=== PATIENT | male | born 1945 | race Caucasian/White ===

== ENCOUNTER 2016-05-22 07:04 | Day surgery (SDC) | payer MEDICARE, OTHER ==
[2016-05-22] MEDS ORDERED: LACTATED RINGERS 1,000 ML IV ONE (07:45)
[2016-05-22] MEDS ORDERED: fentaNYL 250 MCG/5 ML VIAL IVP ONE (09:00)
[2016-05-22] MEDS ORDERED: SIMETHICONE 40 MG/0.6 ML 30 ML BOTTLE PO ONE ×2 (09:00)
[2016-05-22] MEDS ORDERED: MIDAZOLAM 2 MG/2 ML VIAL IVP ONE (09:00)
== END 2016-05-22 07:05 | disposition home or self-care (01) ==
PROC: 0DBL8ZX Excision of Transverse Colon, Via Natural or Artificial Opening Endoscopic, Diagnostic (ICD-10-PCS; principal; 2016-05-22 08:15)
DX: Z86.010 Personal history of colon polyps (principal); Z90.49 Acquired absence of other specified parts of digestive tract; K57.30 Diverticulosis of large intestine without perforation or abscess without bleeding; K64.8 Other hemorrhoids; I10 Essential (primary) hypertension; Z87.891 Personal history of nicotine dependence
CPT/HCPCS: 45380; A9270; J3010; J7120

== ENCOUNTER 2020-11-13 14:21 | Emergency (ER) | payer MEDICARE ==
[2020-11-13] MEDS ORDERED: HYDROmorphone 1 MG/ML CARPUJECT IM STA (14:41)
--- NOTE | 2020-11-13 14:44 | ED Physician Documentation ---
History of Present Illness - Stated complaint Stated Complaint: MALE - Chief complaint Chief Complaint: General - Additonal information Additional information: 75-year-old male presents the emergency department for acute urinary obstructi on. He has a longstanding history of bladder and prostate dysfunction. He had a urological procedure with Dr. Gonzales at [facility] about 10 days ago. His Delarosa catheter was removed on the fifth. He states that since yesterday evening he has began to pass more blood clots and is now obstructed and unable to urinate. He does have a fair amount of blood exiting the urinary meatus. No fevers no vomiting. On initial presentation he appears exquisitely uncomfortable. Preliminary bladder scan shows 375 mils. Review of Systems Constitutional: denies: Fever, Chills Eyes: reports: Reviewed and negative Nose: reports: Reviewed and negative Throat: reports: Reviewed and negative Cardiac: reports: Reviewed and negative Respiratory: reports: Reviewed and negative GI: reports: Abdominal Pain. denies: Nausea, Vomiting : reports: Unable to Void, Hematuria Musculoskeletal: reports: Reviewed and negative Neurologic: reports: Reviewed and negative PD PAST MEDICAL HISTORY - Past Medical History Cardiovascular: Hypertension GI: Colon polyps, Diverticulitis - Past Surgical History General: Appendectomy, Other - Present Medications Home Medications: Ambulatory Orders Medication Instructions Recorded Confirmed Atenolol 50 mg PO BID 05/22/16 05/22/16 Diphenoxylate HCl/Atropine 2.5 mg PO PRN PRN 05/22/16 05/22/16 [Diphenoxylate-Atrop 2.5-0.025] Fluticasone Propionate [Flovent 1 mcg MAIRA DAILY 05/22/16 05/22/16 Diskus] Gabapentin 300 mg PO Q6HR 05/22/16 05/22/16 Loratadine [Claritin] 10 mg PO DAILY 05/22/16 05/22/16 Cefpodoxime Proxetil [Vantin] 100 mg PO Q12H #20 tablet 11/13/20 - Allergies Allergies/Adverse Reactions: Allergies Allergy/AdvReac Type Severity Reaction Status Date / Time No Known Drug Allergies Allergy Verified 05/22/16 07:34 PD ED PE EXPANDED - General General: Alert, In distress - Cardiac Cardiac: Regular Rate, Radial strong equal, Pedal strong equal, Cap refill < 2 sec - Respiratory Respiratory: Clear to ausultation araceli. No: Distress, Labored - Abdomen Abdomen: Normal Bowel sounds, Tender to palpation, Suprapubic (significant TTP suprapubic region with palpable bladder ) - Derm Derm: Normal color, Warm and dry. No: Rash - Extremities Extremities: Normal. No: Deformity, Tenderness Results - Vitals Vitals: Vital Signs - 24 hr 11/13/20 11/13/20 14:25 15:03 Temperature 36.9 C Heart Rate 70 84 Respiratory 16 Rate Blood Pressure 185/87 H 107/50 L O2 Saturation 99 99 Oxygen O2 Source Room air - Labs Labs: Laboratory Tests 11/13/20 11/13/20 11/13/20 14:29 14:29 15:23 WBC 13.4 H RBC 4.65 L Hgb 13.0 L Hct 40.5 L MCV 87.1 MCH 28.0 MCHC 32.1 RDW 14.0 Plt Count 372 MPV 7.8 Neut # (Auto) 11.0 H Lymph # (Auto) 1.2 L [place] # (Auto) 1.0 Eos # (Auto) 0.1 Baso # (Auto) 0.1 Absolute Nucleated RBC 0.00 Nucleated RBC % 0.0 Sodium 139 Potassium 4.2 Chloride 106 Carbon Dioxide 23 Anion Gap 10.0 BUN 34 H Creatinine 1.3 H Estimated GFR (MDRD) 54 L Glucose 117 H Calcium 9.0 Total Bilirubin 0.7 AST 12 ALT 10 Alkaline Phosphatase 34 L Total Protein 6.7 Albumin 4.1 Globulin 2.6 Albumin/Globulin Ratio 1.6 Lipase 24 Urine Color BROWN Urine Clarity CLOUDY Urine pH 6.5 Ur Specific [place] 1.025 Urine Protein >=300 H Urine Glucose (UA) NEGATIVE Urine Ketones TRACE Urine Occult Blood LARGE H Urine Nitrite POSITIVE H Urine Bilirubin NEGATIVE Urine Urobilinogen 1 (NORMAL) Ur Leukocyte Esterase MODERATE H Urine RBC TNTC H Urine WBC >25 H Ur Squamous Epith Cells NONE SEEN Amorphous Sediment Few Urine Bacteria Few Ur Microscopic Review INDICATED Urine Culture Comments INDICATED PD MEDICAL DECISION MAKING - ED course Complexity details: reviewed results, d/w patient, d/w family ED course: 75-year-old male presents the emergency department with acute urinary obstruction. This is in the setting of a history of prostate as well as bladder issues. He was decatheterized on 07 November but has been passing small amounts of blood. On presentation he had more than 350 mils of urine in his bladder. A coud catheter was advanced with resultant drainage of bloody urine. The urine however is suggestive of infection. This gentleman was given a gram of ceftriaxone here in the emergency department. Screening labs do show moderate leukocytosis as well as likely early dehydration and early kidney injury. He reports that due to the obstruction he is drank very little. He was given a liter of crystalloid and advised to improve his hydration at home. At this time patient declines the opportunity for admission. He will be discharged home with a prescription for Cefpodoxime (He reports an allergy to sulfa as well as fluoroquinolones). He is advised to have very close follow-up with urologist Dr. Gonzales. Emergent return precautions discussed Departure - Departure Disposition: Home, Self Care Clinical Impression: Urinary obstruction, Elevated serum creatinine Urinary tract infection Qualifiers: Urinary tract infection type: catheter-associated UTI Indwelling urinary catheter type: unspecified Encounter type: initial encounter Qualified Code(s): T83.511A - Infection and inflammatory reaction due to indwelling urethral catheter, initial encounter; N39.0 - Urinary tract infection, site not specified Condition: Stable Record reviewed to determine appropriate education?: Yes Prescriptions: Cefpodoxime Proxetil [Vantin] 100 mg PO Q12H #20 tablet Comments: Rob you are seen today in the emergency department for urinary obstruction. We were able to place a Delarosa catheter. You will need to keep this in until you see your urologist in follow-up. You do have a urinary tract infection please fill the prescription for the Cefpodoxime and take twice daily for 10 days. You do look like you are fairly dehydrated and we did give you some IV fluids. Please try and stay well-hydrated at home. Return to the emergency department if you develop any fevers, your catheter becomes occluded and does not drain properly, if you develop abdominal pain or have any other emergent worrisome concerns.
[2020-11-13 15:38] LABS: GLUCOSE, URINE (UA) NEGATIVE (NEGATIVE); KETONES,URINE (UA) TRACE mg/dL (NEGATIVE); LEUKOCYTE ESTERASE, URINE MODERATE (NEGATIVE); NITRITE,URINE POSITIVE (NEGATIVE); OCCULT BLOOD,URINE LARGE (NEGATIVE); PH,URINE 6.5 PH (5.0-7.5); PROTEIN,URINE >=300 mg/dL (NEGATIVE); UROBILINOGEN,URINE 1 (NORMAL) E.U./dL (NORMAL)
[2020-11-13 16:01] LABS: BILIRUBIN,URINE NEGATIVE (NEGATIVE); CLARITY,URINE CLOUDY (CLEAR); ICTOTEST,URINE NEGATIVE
[2020-11-13 16:02] LABS: AMORPHOUS SEDIMENT,UR Few /LPF; BACTERIA,URINE Few /HPF (None Seen); RBC,URINE TNTC /HPF (0-5); SQUAMOUS EPITHELIAL CELL,UR NONE SEEN (<= Few); WBC,URINE >25 /HPF (0-3)
[2020-11-13] MEDS ORDERED: cefTRIAXone 1 GM VIAL IM STA (16:21)
[2020-11-13] MEDS ORDERED: LIDOCAINE 1% 2 ML VIAL MC ONE (16:21)
[2020-11-13 16:34] LABS: BASOPHILS # (AUTO) 0.1 10^3/uL (0.0-0.1); BASOPHILS % (AUTO) 0.4 %; EOSINOPHILS # (AUTO) 0.1 10^3/uL (0.0-0.7); HCT - HEMATOCRIT 40.5 % (42.0-52.0); LYMPHOCYTES # (AUTO) 1.2 10^3/uL (1.5-3.5); LYMPHOCYTES % (AUTO) 8.7 %; MEAN CORPUSCULAR HGB CONC 32.1 g/dL (32.0-36.0); MEAN CORPUSCULAR VOLUME 87.1 fL (80.0-94.0); MEAN PLATELET VOLUME 7.8 fL (7.4-11.4); MONOCYTES % (AUTO) 7.2 %; NEUTROPHILS % (AUTO) 82.1 %; PLT - PLATELET COUNT 372 10^3/uL (130-450); RED BLOOD COUNT 4.65 10^6/uL (4.70-6.10); WHITE BLOOD COUNT 13.4 x10^3/uL (4.8-10.8)
[2020-11-13 16:47] LABS: ALBUMIN 4.1 g/dL (3.2-5.5); ALBUMIN/GLOBULIN RATIO 1.6 (1.0-2.2); BILIRUBIN,TOTAL 0.7 mg/dL (0.2-1.0); CREATININE 1.3 mg/dL (0.6-1.2); POTASSIUM 4.2 mmol/L (3.5-5.0); TOTAL PROTEIN 6.7 g/dL (6.7-8.2)
[2020-11-13] MEDS ORDERED: SODIUM CHLORIDE 0.9% 1,000 ML IV STA (16:56)
[2020-11-13 18:47] VITALS: BP 133/59
== END 2020-11-13 18:46 | disposition home or self-care (01) ==
LOC: ED 14:21
DX: N13.9 Obstructive and reflux uropathy, unspecified (principal); T83.511A Infection and inflammatory reaction due to indwelling urethral catheter, initial encounter; R79.89 Other specified abnormal findings of blood chemistry
CPT/HCPCS: 36415; 51702; 80053; 81001; 83690; 85025; 87086; 96360; 96372; 99283; 99284; J1170; 81003

== ENCOUNTER 2022-04-17 08:39 | Outpatient (CLI) | payer MEDICARE ==
[2022-04-17 14:50] LABS: BASOPHILS # (AUTO) 0.1 10^3/uL (0.0-0.1); BASOPHILS % (AUTO) 0.5 %; EOSINOPHILS # (AUTO) 0.2 10^3/uL (0.0-0.7); EOSINOPHILS % (AUTO) 2.1 %; HCT - HEMATOCRIT 49.1 % (42.0-52.0); HGB - HEMOGLOBIN 15.7 g/dL (14.0-18.0); LYMPHOCYTES # (AUTO) 2.7 10^3/uL (1.5-3.5); LYMPHOCYTES % (AUTO) 28.7 %; MEAN CORPUSCULAR HEMOGLOBIN 28.1 pg (27.0-31.0); MEAN CORPUSCULAR VOLUME 87.8 fL (80.0-94.0); MEAN PLATELET VOLUME 8.7 fL (7.4-11.4); MONOCYTES # (AUTO) 0.9 10^3/uL (0.0-1.0); MONOCYTES % (AUTO) 9.7 %; NEUTROPHILS # (AUTO) 5.5 10^3/uL (1.5-6.6); NEUTROPHILS % (AUTO) 58.5 %; PLT - PLATELET COUNT 349 10^3/uL (130-450); RED BLOOD COUNT 5.59 10^6/uL (4.70-6.10); RED CELL DISTRIBUTION WIDTH 12.8 % (12.0-15.0); WHITE BLOOD COUNT 9.4 x10^3/uL (4.8-10.8)
[2022-04-17 15:17] LABS: ALBUMIN 4.1 g/dL (3.2-5.5); ALBUMIN/GLOBULIN RATIO 1.5 (1.0-2.2); ALKALINE PHOSPHATASE 37 IU/L (42-121); ALT ALANINE AMINOTRANSFERASE 16 IU/L (10-60); AST ASPARTATE AMINOTRANSFERASE 17 IU/L (10-42); BUN - BLOOD UREA NITROGEN 20 mg/dL (6-20); CALCIUM 9.4 mg/dL (8.5-10.3); CARBON DIOXIDE - CO2 26 mmol/L (21-32); CHLORIDE 105 mmol/L (101-111); CHOL/HDL RATIO 4.2 (<5.0); CHOLESTEROL 184 mg/dL; CREATININE 1.1 mg/dL (0.6-1.2); GFR - MDRD 65 (>89); GLUCOSE 108 mg/dL (70-100); HDL CHOLESTEROL 44 mg/dL; LDL CHOLESTEROL,CALCULATED 114 mg/dL; LDL/HDL RATIO 2.6 (<3.6); POTASSIUM 3.9 mmol/L (3.5-5.0); SODIUM 138 mmol/L (135-145); TOTAL PROTEIN 6.9 g/dL (6.7-8.2); TRIGLYCERIDES 132 mg/dL; VLDL CHOLESTEROL 26 mg/dL
== END 2022-04-17 08:40 | disposition home or self-care (01) ==
LOC: LAB.S 08:39
PROVIDERS: ATTEND Hospitalist
DX: I10 Essential (primary) hypertension (principal); K91.2 Postsurgical malabsorption, not elsewhere classified; E78.49 Other hyperlipidemia; N40.1 Benign prostatic hyperplasia with lower urinary tract symptoms
CPT/HCPCS: 36415; 80053; 80061; 85025; G0103; 83721; 84153

== ENCOUNTER 2022-12-12 16:47 | Emergency (ER) | payer MEDICARE ==
--- NOTE | 2022-12-12 18:37 | ED Physician Documentation ---
PD HPI BACK PAIN - Stated complaint Stated Complaint: BACK PX - Chief complaint Chief Complaint: Back Pain - History obtained from History obtained from: Patient - History of Present Illness Pain level max: 7 Pain level now: 7 Location: Mid, Right, Left Quality: Pain, Spasm Associated symptoms: No: Fever, Weakness, Numbness, Incontinent of urine, Unable to urinate, Hematuria, Incontinent of stool Improves with: Rest Worsened by: Movement Contributing factors: Cancer (prostate). No: Trauma, Anticoagulated, IVDA - Additional information Additional information: Patient is a 77-year-old male who presents to the emergency department complaint of mid back pain for the past 3 weeks. Feels like it is "in the muscle". Saw his doctor a week ago and was placed on gabapentin and baclofen. He states he is still having back pain. He is also having epigastric abdominal pain for the past 3 weeks. Better with eating, worse with not eating. No vomiting. Has a remote history of prostate cancer. No fevers. No chills. No trauma. No falls. No head injury. No neck pain. No numbness or tingling. Review of Systems Constitutional: denies: Fever, Chills Nose: denies: Rhinorrhea / runny nose, Congestion GI: denies: Nausea, Vomiting, Diarrhea Skin: denies: Rash Musculoskeletal: denies: Neck pain Neurologic: denies: Focal weakness, Numbness, Headache PD PAST MEDICAL HISTORY - Past Medical History Cardiovascular: Hypertension Respiratory: None Neuro: None Endocrine/Autoimmune: None GI: Colon polyps, Diverticulitis : Benign prostate hypertrophy HEENT: None Psych: None Musculoskeletal: None Derm: None - Past Surgical History General: Appendectomy, Other - Present Medications Home Medications: Ambulatory Orders Medication Instructions Recorded Confirmed Atenolol 50 mg PO BID 05/22/16 12/12/22 Baclofen 5 mg PO Q8H PRN #14 tablet 12/12/22 Baclofen [Lioresal] 10 mg PO BID PRN 12/12/22 12/12/22 Diclofenac Sodium 1% Gel [Voltaren 2 gm TOP QID 12/12/22 12/12/22 Gel] Diphenoxylate/Atropine [Lomotil] 1 tab ORAL BID PRN 12/12/22 12/12/22 Gabapentin [Neurontin] 100 mg PO TID 12/12/22 12/12/22 HYDROcod/ACETAM 5/325 [Tuttle 5/325] 1 - 2 ea PO Q6H PRN #14 tablet 12/12/22 Rosuvastatin Calcium [Crestor] 20 mg PO HS 12/12/22 12/12/22 - Allergies Allergies/Adverse Reactions: Allergies Allergy/AdvReac Type Severity Reaction Status Date / Time amoxicillin [From Augmentin] AdvReac Hives Verified 12/12/22 17:15 clavulanic acid AdvReac Hives Verified 12/12/22 17:15 [From Augmentin] erythromycin base AdvReac Hives Verified 12/12/22 17:15 meloxicam AdvReac Hallucinati Verified 12/12/22 17:15 ons Sulfa (Sulfonamide AdvReac Hives Verified 12/12/22 17:15 Antibiotics) Tetracyclines AdvReac Hives Verified 12/12/22 17:15 - Social History Does the pt smoke?: No Smoking Status: Never smoker Does the pt drink ETOH?: No Does the pt have substance abuse?: No - Immunizations Immunizations are current?: Yes - POLST Patient has POLST: No PD ED PE NORMAL - Vitals Vital signs reviewed: Yes - General General: Alert and oriented X 3, No acute distress - HEENT HEENT: PERRL, Moist mucous membranes - Neck Neck: Supple, no meningeal sign - Cardiac Cardiac: RRR, Strong equal pulses - Respiratory Respiratory: No respiratory distress, Clear bilaterally - Abdomen Abdomen: Soft, Non tender, Non distended - Back Back: No spinal TTP (No midline tenderness to palpation or percussion. No step- off or deformity. Mild paraspinal tenderness approximately T8-T12. Bilateral.) - Derm Derm: Warm and dry - Extremities Extremities: No edema, No calf tenderness / cord - Neuro Neuro: Alert and oriented X 3 - Psych Psych: Normal mood, Normal affect Results - Vitals Vitals: Vital Signs - 24 hr 12/12/22 12/12/22 17:08 22:25 Temperature 36.3 C L Heart Rate 51 L 70 Respiratory 18 16 Rate Blood Pressure 148/86 H 146/75 H O2 Saturation 99 98 Oxygen O2 Source Room air - Labs Labs: Laboratory Tests 12/12/22 12/12/22 12/12/22 18:45 18:45 21:34 WBC 12.1 H RBC 5.01 Hgb 14.3 Hct 44.7 MCV 89.2 MCH 28.5 MCHC 32.0 RDW 13.0 Plt Count 391 MPV 8.1 Neut # (Auto) 8.8 H Lymph # (Auto) 2.1 [place] # (Auto) 0.9 Eos # (Auto) 0.2 Baso # (Auto) 0.0 Absolute Nucleated RBC 0.00 Nucleated RBC % 0.0 Sodium 139 Potassium 4.3 Chloride 107 Carbon Dioxide 24 Anion Gap 8.0 BUN 26 H Creatinine 1.0 Estimated GFR (MDRD) 72 L Glucose 105 H Calcium 9.5 Total Bilirubin 0.5 AST 11 ALT 9 L Alkaline Phosphatase 35 L Total Protein 6.8 Albumin 4.1 Globulin 2.7 Albumin/Globulin Ratio 1.5 Lipase 18 Urine Color YELLOW Urine Clarity CLEAR Urine pH 5.5 Ur Specific [place] 1.010 Urine Protein NEGATIVE Urine Glucose (UA) NEGATIVE Urine Ketones 15 H Urine Occult Blood TRACE-INTA Urine Nitrite NEGATIVE Urine Bilirubin NEGATIVE Urine Urobilinogen 0.2 (NORMAL) Ur Leukocyte Esterase NEGATIVE Ur Microscopic Review NOT INDICATED Urine Culture Comments NOT INDICATED - Rads (name of study) CT abdomen pelvis Relevant Findings:: Final report received, See rad report PD Medical Decision Making - ED course Complexity details: reviewed results, re-evaluated patient, considered differential (No cauda equina, no spinal epidural abscess, no fracture, no aortic dissection or evidence of aneursym rupture), d/w patient Reviewed Lab Results: Mild leukocytosis, otherwise no significant lab abnormalities ED course: 77-year-old male with ongoing back pain for several weeks, feels better with baclofen, he is on 10 mg twice a day, we will change this down to 5 mg every 8 hours. He also appears to have a gallstone on CT scan. He is not having any abdominal pain now, but this could be causing the intermittent epigastric/right upper quadrant abdominal pain. Recommend he follow-up with his PCP for further care of this. He had thoracic spine x-rays last week with no acute abnormalities. No acute spinal abnormalities on CT of the abdomen pelvis today. No numbness or tingling. No evidence of cauda equina, epidural abscess. Patient is well-appearing, nontoxic. Afebrile. Patient counseled regarding signs and symptoms for which I believe and urgent re-evaluation would be necessary. Patient with good understanding of and agreement to plan and is comfortable going home at this time This document was made in part using voice recognition software. While efforts are made to proofread this document, sound alike and grammatical errors may occur. Departure - Departure Disposition: 01 Home, Self Care Clinical Impression: Back pain Qualifiers: Back pain location: thoracic back pain Chronicity: acute Back pain laterality: bilateral Qualified Code(s): M54.6 - Pain in thoracic spine Gallstone Qualifiers: Cholecystitis presence: without cholecystitis Biliary obstruction: without biliary obstruction Qualified Code(s): K80.20 - Calculus of gallbladder without cholecystitis without obstruction Condition: Good Instructions: ED Abdominal Pain Gallstone Poss, ED Neck Back Pain General Follow-Up: FRACISCO CUEVA [Primary Care Provider] - Within 3 Days Prescriptions: Baclofen 5 mg PO Q8H PRN #14 tablet PRN Reason: back pain HYDROcod/ACETAM 5/325 [Tuttle 5/325] 1 - 2 ea PO Q6H PRN #14 tablet PRN Reason: Pain Comments: Your prescription was sent to [facility] in [place]. Please follow with your doctor for further care. Your CT does not show any acute findings in your back, that does show that you have a gallstone and this may be causing the pain that you are getting on the right side of your abdomen. Please follow-up with your doctor for further care of this. Please return if you worsen. I am prescribing a short course of narcotic pain medication for you. These are potentially dangerous and addictive medications that should be used carefully. These medications may constipate you. Take an xoak-ipi-tyiuita stool softener (docusate) twice daily with plenty of water while taking these medications. If you go 24 hours without a bowel movement, take [id number] miralax, per package instructions. Do not drink or drive while taking these medications. If you received narcotic or sedating medications while in the emergency department, do not drive for 24 hours. Store this medication in a safe, secure place and out of reach of children. It is a violation of federal law to give or sell this medication to another person or to use in a manner other than prescribed. The ED will not refill narcotic prescriptions, including prescriptions lost or stolen. To dispose of unwanted medications: 1. [facility] at [address] in [place] has a medication drop box. They accept prescription medications (in pill form) Sunday through Sunday 9:00 a.m. to 5:00 p.m. 2. [facility] [employer] [facility] accepts prescription medications (in pill form only) for disposal year round. Call for more information. 3. Contact the [facility] for the next [facility] sponsored prescription drug collection event. , [phone], or [phone]; PROCEDURE: ABDOMEN/PELVIS W INDICATIONS: upper abd pain/back pain x 3 wks, h/o prostate ca CONTRAST: 100mL Omni 300 TECHNIQUE: After the administration of IV contrast, 5 mm thick sections acquired from the diaphragms to the symphysis. 5 mm thick coronal and sagittal reformats were acquired. For radiation dose reduction, the following was used: automated exposure control, adjustment of mA and/or kV according to patient size. COMPARISON: None FINDINGS: Image quality: Excellent. Lung bases and heart: Bibasilar dependent atelectasis/scarring is seen posteriorly. Heart size is enlarged, no pericardial effusion.. Liver: No solid mass. Gallbladder and biliary tree: A calcified stone is noted in dependent portion of gallbladder lumen. No gallbladder wall thickening or pericholecystic fluid. There is no intra or extrahepatic biliary ductal dilatation. Spleen: No splenomegaly. Pancreas: No pancreatic ductal dilation. Adrenals: No adrenal nodule. Kidneys and ureters: No hydronephrosis. Left cortical and peripelvic renal cysts are seen measures up to 2.1 x 1.8 cm in size in left peripelvic region. No solid mass. Bowel and peritoneum: Postsurgical changes are noted in the ascending colon with intact surgical anastomosis. No evidence of bowel obstruction. No abnormal bowel wall thickening or mesenteric fat stranding. Descending colon and sigmoid colon diverticulosis is seen without colonic wall thickening or pericolonic fat stranding. No abscess collection. No free fluid of free air. Appendix is not visualized. Lymph nodes: No central or retroperitoneal adenopathy. Vessels: No infrarenal aortic aneurysm. Moderate atherosclerotic calcifications are noted in abdominal aorta and bilateral iliac arteries. PELVIS Reproductive organs: Brachytherapy seeds are noted within prostate gland. Bladder: No abnormal wall thickening, accounting for underdistension. Pelvic lymph nodes: No pelvic adenopathy by size criteria. Bones: No aggressive osseous abnormality. Osteoarthritic changes are noted throughout the bony pelvis. Degenerative disc disease are noted throughout lower thoracic and lumbar spine. No acute vertebral body compression fracture. Other: No significant ventral hernia. Small bilateral inguinal hernias are seen containing fat only. IMPRESSION: 1. No acute inflammatory process is seen in abdomen or pelvis. Colonic diverticulosis without CT evidence of acute diverticulitis. Post surgical changes in right lower quadrant abdomen. No free fluid of free air. 2. Left renal cysts as above. No hydronephrosis or nephrolithiasis. Normal appearing partially distended urinary bladder. Brachytherapy seeds are noted within prostate gland. 3. Cholelithiasis without CT evidence of acute cholecystitis. No biliary ductal dilatation. Discharge Date/Time: 12/12/22 22:25
[2022-12-12 18:57] LABS: BASOPHILS % (AUTO) 0.3 %; EOSINOPHILS # (AUTO) 0.2 10^3/uL (0.0-0.7); EOSINOPHILS % (AUTO) 1.6 %; HCT - HEMATOCRIT 44.7 % (42.0-52.0); HGB - HEMOGLOBIN 14.3 g/dL (14.0-18.0); LYMPHOCYTES # (AUTO) 2.1 10^3/uL (1.5-3.5); LYMPHOCYTES % (AUTO) 17.5 %; MEAN CORPUSCULAR HEMOGLOBIN 28.5 pg (27.0-31.0); MEAN CORPUSCULAR VOLUME 89.2 fL (80.0-94.0); MEAN PLATELET VOLUME 8.1 fL (7.4-11.4); MONOCYTES # (AUTO) 0.9 10^3/uL (0.0-1.0); MONOCYTES % (AUTO) 7.7 %; NEUTROPHILS # (AUTO) 8.8 10^3/uL (1.5-6.6); NEUTROPHILS % (AUTO) 72.5 %; PLT - PLATELET COUNT 391 10^3/uL (130-450); RED BLOOD COUNT 5.01 10^6/uL (4.70-6.10); WHITE BLOOD COUNT 12.1 x10^3/uL (4.8-10.8)
[2022-12-12 19:12] LABS: ALBUMIN 4.1 g/dL (3.2-5.5); ALBUMIN/GLOBULIN RATIO 1.5 (1.0-2.2); BILIRUBIN,TOTAL 0.5 mg/dL (0.2-1.0); CALCIUM 9.5 mg/dL (8.5-10.3); POTASSIUM 4.3 mmol/L (3.5-4.5); TOTAL PROTEIN 6.8 g/dL (6.4-8.9)
--- NOTE | 2022-12-12 20:38 | CT Report ---
PROCEDURE: ABDOMEN/PELVIS W INDICATIONS: upper abd pain/back pain x 3 wks, h/o prostate ca CONTRAST: 100mL Omni 300 TECHNIQUE: After the administration of IV contrast, 5 mm thick sections acquired from the diaphragms to the symp hysis. 5 mm thick coronal and sagittal reformats were acquired. For radiation dose reduction, the f ollowing was used: automated exposure control, adjustment of mA and/or kV according to patient size. COMPARISON: None FINDINGS: Image quality: Excellent. Lung bases and heart: Bibasilar dependent atelectasis/scarring is seen posteriorly. Heart size is enl arged, no pericardial effusion.. Liver: No solid mass. Gallbladder and biliary tree: A calcified stone is noted in dependent portion of gallbladder lumen. N o gallbladder wall thickening or pericholecystic fluid. There is no intra or extrahepatic biliary ede mae dilatation. Spleen: No splenomegaly. Pancreas: No pancreatic ductal dilation. Adrenals: No adrenal nodule. Kidneys and ureters: No hydronephrosis. Left cortical and peripelvic renal cysts are seen measures up to 2.1 x 1.8 cm in size in left peripelvic region. No solid mass. Bowel and peritoneum: Postsurgical changes are noted in the ascending colon with intact surgical anas tomosis. No evidence of bowel obstruction. No abnormal bowel wall thickening or mesenteric fat strand ing. Descending colon and sigmoid colon diverticulosis is seen without colonic wall thickening or per icolonic fat stranding. No abscess collection. No free fluid of free air. Appendix is not visualized. Lymph nodes: No central or retroperitoneal adenopathy. Vessels: No infrarenal aortic aneurysm. Moderate atherosclerotic calcifications are noted in abdomina l aorta and bilateral iliac arteries. PELVIS Reproductive organs: Brachytherapy seeds are noted within prostate gland. Bladder: No abnormal wall thickening, accounting for underdistension. Pelvic lymph nodes: No pelvic adenopathy by size criteria. Bones: No aggressive osseous abnormality. Osteoarthritic changes are noted throughout the bony pelvis . Degenerative disc disease are noted throughout lower thoracic and lumbar spine. No acute vertebral body compression fracture. Other: No significant ventral hernia. Small bilateral inguinal hernias are seen containing fat only. IMPRESSION: 1. No acute inflammatory process is seen in abdomen or pelvis. Colonic diverticulosis without CT evid ence of acute diverticulitis. Post surgical changes in right lower quadrant abdomen. No free fluid of free air. 2. Left renal cysts as above. No hydronephrosis or nephrolithiasis. Normal appearing partially disten ded urinary bladder. Brachytherapy seeds are noted within prostate gland. 3. Cholelithiasis without CT evidence of acute cholecystitis. No biliary ductal dilatation. Reviewed by: Russel Shen MD on 12/12/2022 8:37 PM PDT Approved by: Russel Shen MD on 12/12/2022 8:37 PM PDT Station ID: [id number]
[2022-12-12 21:43] LABS: BILIRUBIN,URINE NEGATIVE (NEGATIVE); GLUCOSE, URINE (UA) NEGATIVE (NEGATIVE); KETONES,URINE (UA) 15 mg/dL (NEGATIVE); LEUKOCYTE ESTERASE, URINE NEGATIVE (NEGATIVE); NITRITE,URINE NEGATIVE (NEGATIVE); OCCULT BLOOD,URINE TRACE-INTA (NEGATIVE); PH,URINE 5.5 PH (5.0-7.5); PROTEIN,URINE NEGATIVE (NEGATIVE); UROBILINOGEN,URINE 0.2 (NORMAL) E.U./dL (NORMAL)
[2022-12-12 21:45] LABS: CLARITY,URINE CLEAR (CLEAR)
[2022-12-12] MEDS ORDERED: KETOROLAC 30 MG/ML VIAL IVP STA (21:59)
[2022-12-12 23:46] VITALS: BP 146/75; O2SAT 98
[2022-12-13] MEDS ORDERED: iohexoL-300 100 ML VIAL IVP ONE (01:02)
== END 2022-12-12 22:25 | disposition home or self-care (01) ==
LOC: ED 16:47
DX: M54.6 Pain in thoracic spine (principal); K80.20 Calculus of gallbladder without cholecystitis without obstruction
CPT/HCPCS: 36415; 74177; 80053; 81003; 83690; 85025; 96374; 99284; Q9967; 81001; 87086

== ENCOUNTER 2022-12-26 17:56 | Emergency (ER) | payer MEDICARE ==
--- NOTE | 2022-12-26 18:22 | ED Physician Documentation ---
PD HPI ABD PAIN - Stated complaint Stated Complaint: ABD/BACK PX - Chief complaint Chief Complaint: Abd Pain - History obtained from History obtained from: Patient - Additional information Additional information: 77-year-old male presents with right upper quadrant abdominal pain. The patient has been seen in the past for the same, most recently on 12/12 where he was found to have a gallstone at the gallbladder neck. He states that since then he has had "unbearable," pain in the right upper quadrant worsening over the last few days. He has nausea but no vomiting, no fever or chills, no chest pain or cough or URI symptoms. He does sometimes have difficulty taking a deep breath due to the pain at the right upper quadrant but no cough, sob, or chest pain. He also notes incontinence of urine at times though this is not new since he had a TURP. He denies any dysuria urgency or frequency. No flank pain. He states he was trying to wait until he could see his PCP but the pain was "life al tering," and He felt like he needed to be seen sooner. He has been taking "tons," of ibuprofen to help manage the pain. He has no history of alcohol use and no history of gastritis. He is on a PPI. He has not been vomiting blood or having any vomiting, he has not had diarrhea or constipation. He is passing gas. He is tolerating some p.o. Review of Systems Constitutional: reports: Reviewed and negative Eyes: reports: Reviewed and negative Ears: reports: Reviewed and negative Nose: reports: Reviewed and negative Throat: reports: Reviewed and negative Cardiac: reports: Reviewed and negative Respiratory: reports: Reviewed and negative GI: reports: Abdominal Pain, Nausea. denies: Abdominal Swelling, Vomiting, Constipation, Diarrhea, Hematemesis : reports: Incontinent (chronic), Reviewed and negative Skin: reports: Reviewed and negative Musculoskeletal: reports: Reviewed and negative Neurologic: reports: Reviewed and negative PD PAST MEDICAL HISTORY - Past Medical History Past Medical History: Yes Cardiovascular: Hypertension Respiratory: None Neuro: None Endocrine/Autoimmune: None GI: Colon polyps, Diverticulitis : Benign prostate hypertrophy HEENT: None Psych: None Musculoskeletal: None Derm: None - Past Surgical History General: Appendectomy, Other - Present Medications Home Medications: Ambulatory Orders Medication Instructions Recorded Confirmed Gabapentin [Neurontin] 100 mg PO TID 12/12/22 12/12/22 Baclofen 10 mg PO BID PRN 12/26/22 Cefpodoxime Proxetil [Vantin] 200 mg PO Q12H #20 tablet 12/26/22 Omeprazole 40 mg PO DAILY #30 cap 12/26/22 Oxycodone HCl/Acetaminophen 1 each PO Q6H PRN #12 tablet 12/26/22 [Percocet 5-325 mg Tablet] - Allergies Allergies/Adverse Reactions: Allergies Allergy/AdvReac Type Severity Reaction Status Date / Time amoxicillin [From Augmentin] AdvReac Hives Verified 12/26/22 18:06 clavulanic acid AdvReac Hives Verified 12/26/22 18:06 [From Augmentin] erythromycin base AdvReac Hives Verified 12/26/22 18:06 meloxicam AdvReac Hallucinati Verified 12/26/22 18:06 ons Sulfa (Sulfonamide AdvReac Hives Verified 12/26/22 18:06 Antibiotics) Tetracyclines AdvReac Hives Verified 12/26/22 18:06 - Social History Does the pt smoke?: No Smoking Status: Never smoker Does the pt drink ETOH?: No Does the pt have substance abuse?: No - Immunizations Immunizations are current?: Yes - POLST Patient has POLST: No PD ED PE NORMAL - Vitals Vital signs reviewed: Yes - General General: Alert and oriented X 3, No acute distress, Well developed/nourished, Other (drowsy) - HEENT HEENT: Atraumatic, Moist mucous membranes - Neck Neck: Supple, no meningeal sign, No adenopathy - Cardiac Cardiac: RRR, No murmur - Respiratory Respiratory: No respiratory distress, Clear bilaterally - Abdomen Abdomen: Normal bowel sounds, Soft, Non tender, Non distended, Other (no current abdominal ttp) - Back Back: No CVA TTP, No spinal TTP - Derm Derm: Normal color, Warm and dry - Extremities Extremities: No deformity, No tenderness to palpate, Normal ROM s pain, No edema - Neuro Neuro: Alert and oriented X 3 Eye Opening: Spontaneous Motor: Obeys Commands Verbal: Oriented GCS Score: 15 - Psych Psych: Normal mood, Normal affect Results - Vitals Vitals: Vital Signs - 24 hr 12/26/22 12/26/22 12/26/22 18:00 18:32 19:30 Temperature 37 C Heart Rate 56 L 62 61 Respiratory 16 24 16 Rate Blood Pressure 181/82 H 170/75 H O2 Saturation 97 98 98 12/26/22 21:06 Temperature Heart Rate 62 Respiratory 16 Rate Blood Pressure 184/85 H O2 Saturation 98 Oxygen O2 Source Room air - Labs Labs: Laboratory Tests 12/26/22 12/26/22 12/26/22 18:28 18:28 21:00 WBC 17.3 H RBC 4.25 L Hgb 12.4 L Hct 37.9 L MCV 89.2 MCH 29.2 MCHC 32.7 RDW 13.7 Plt Count 474 H MPV 8.0 Neut # (Auto) 13.7 H Lymph # (Auto) 2.2 Dare # (Auto) 1.2 H Eos # (Auto) 0.2 Baso # (Auto) 0.1 Absolute Nucleated RBC 0.00 Nucleated RBC % 0.0 Sodium 141 Potassium 3.9 Chloride 109 Carbon Dioxide 23 Anion Gap 9.0 BUN 31 H Creatinine 1.2 Estimated GFR (MDRD) 58 L Glucose 115 H Calcium 9.4 Total Bilirubin 0.3 AST 9 L ALT 8 L Alkaline Phosphatase 37 L Total Protein 6.8 Albumin 4.1 Globulin 2.7 Albumin/Globulin Ratio 1.5 Lipase 59 Urine Color YELLOW Urine Clarity HAZY Urine pH 6.0 Ur Specific [place] 1.015 Urine Protein TRACE Urine Glucose (UA) NEGATIVE Urine Ketones 15 H Urine Occult Blood LARGE H Urine Nitrite NEGATIVE Urine Bilirubin NEGATIVE Urine Urobilinogen 0.2 (NORMAL) Ur Leukocyte Esterase SMALL H Urine RBC TNTC H Urine WBC >25 H Ur Squamous Epith Cells FEW Squamous Urine Bacteria Moderate H Ur Microscopic Review INDICATED Urine Culture Comments INDICATED - Rads (name of study) No standard instances Relevant Findings:: Final report received PD Medical Decision Making - ED course Complexity details: reviewed old records, reviewed results, re-evaluated patient, considered differential, d/w patient, d/w family, d/w construction safety consultant (Dr. Leigh) ED course: This is a 77-year-old male who presents with ongoing upper abdominal pain. He was diagnosed as a gallstone on 12/12 but the pain has been worsening and he has been taking substantial amounts of ibuprofen during that time without relief in his pain. I know that here, the patient is uncomfortable but nontoxic-appearing is stable vital signs aside from mild hypertension. He has right upper quadrant abdominal pain on physical exam. I reviewed his prior CT scan and labs and it was concerned that he may be developing acute cholecystitis versus gastritis or GERD symptoms versus pancreatitis versus other abdominal infection. We obtained labs which are significant for leukocytosis of 17,000, mild anemia with hemoglobin in the 12,000 range otherwise stable. His chemistry revealed elevated BUN at 31,000 and decreased GFR, normal creatinine. His LFTs were normal and lipase was normal. I initially obtained a right upper quadrant ultrasound which showed the prior known gallstone at the gallbladder neck but no signs of acute cholecystitis. I then proceeded with a CT abdomen pelvis and this showed signs of duodenitis gastritis possible PUD. The year is that a known gallstone but no signs of acute cholecystitis. There is additional findi ngs as listed below. I suspect that the PUD or gastritis is causing the patient's symptoms. He received a PPI here as well as Maalox with substantial improvement in his symptoms. He is feeling quite a bit better at this time and I do think stable for discharge home with ongoing treatment for his PUD or gastritis. I will place him on omeprazole daily and patient was advised to stop all NSAIDs. I will give him a short course of Percocet for pain relief as I do not want him taking any NSAIDs. He will also need to be tested for H. pylori on outpatient basis exam unable to do so here but I think more likely this is related to the large amount of NSAIDs he has been taking recently. He does have signs of possible UTI on exam and given his leukocytosis I think reasonable to treat for UTI with antibiotics, I will start him on cefpodoxime pending urine culture. The patient continues to feel improved since starting PPI and Maalox here and therefore I do think stable for discharge home but strict return precautions were reviewed with the patient and his son. He will be discharged home with a take-home pack of pain medication and it was cautioned on the potential side effect of these medications. He will still need to follow-up with surgery on outpatient basis for possible elective gallbladder removal if ongoing symptoms there and he may need a EGD in the future if symptoms persist. Departure - Departure Disposition: 01 Home, Self Care Clinical Impression: Acute urinary tract infection, Peptic ulcer Condition: Good Instructions: ED PUD Vs Gastritis, ED UTI Cystitis Male Follow-Up: Ursula Leigh MD [Provider Admit Priv/Credential] - Prescriptions: Omeprazole 40 mg PO DAILY #30 cap Oxycodone HCl/Acetaminophen [Percocet 5-325 mg Tablet] 1 each PO Q6H PRN #12 tablet PRN Reason: Pain >8 Cefpodoxime Proxetil [Vantin] 200 mg PO Q12H #20 tablet Comments: You have signs of duodenitis or peptic ulcer disease. This is likely from the ibuprofen you have been taking recently, but can also be caused by a bacteria called H.pylori. We would like you to be tested for H.pylori and this will need to be done at the outpatient lab as we cannot do it in the ER. You should stop taking ibuprofen (including Advil, naproxen, meloxicam, or any NSAID). Eat a bland diet. Start an acid cleat feeder called Omeprazole. Follow up with surgery clinic for possible EGD to evaluate the peptic ulcer. You may also need your gallbladder removed at home point but it is not what is causing your symptoms today. elective I have listed the surgeon, Dr. Leigh, on these discharge instructions. You also have signs of a UTI today. I have put you on antibiotics for this. Take them as prescribed. If you have a fever or sudden worsening of symptoms, vomiting, vomiting blood, or new concerns, return to the ER. Forms: PCP List
[2022-12-26 18:35] LABS: BASOPHILS # (AUTO) 0.1 10^3/uL (0.0-0.1); BASOPHILS % (AUTO) 0.4 %; EOSINOPHILS # (AUTO) 0.2 10^3/uL (0.0-0.7); HCT - HEMATOCRIT 37.9 % (42.0-52.0); HGB - HEMOGLOBIN 12.4 g/dL (14.0-18.0); LYMPHOCYTES # (AUTO) 2.2 10^3/uL (1.5-3.5); LYMPHOCYTES % (AUTO) 12.4 %; MEAN CORPUSCULAR HEMOGLOBIN 29.2 pg (27.0-31.0); MEAN CORPUSCULAR HGB CONC 32.7 g/dL (32.0-36.0); MEAN CORPUSCULAR VOLUME 89.2 fL (80.0-94.0); MONOCYTES # (AUTO) 1.2 10^3/uL (0.0-1.0); MONOCYTES % (AUTO) 6.7 %; NEUTROPHILS # (AUTO) 13.7 10^3/uL (1.5-6.6); PLT - PLATELET COUNT 474 10^3/uL (130-450); RED BLOOD COUNT 4.25 10^6/uL (4.70-6.10); RED CELL DISTRIBUTION WIDTH 13.7 % (12.0-15.0); WHITE BLOOD COUNT 17.3 x10^3/uL (4.8-10.8)
[2022-12-26 18:47] LABS: ALBUMIN 4.1 g/dL (3.2-5.5); ALBUMIN/GLOBULIN RATIO 1.5 (1.0-2.2); BILIRUBIN,TOTAL 0.3 mg/dL (0.2-1.0); CALCIUM 9.4 mg/dL (8.5-10.3); CREATININE 1.2 mg/dL (0.6-1.3); POTASSIUM 3.9 mmol/L (3.5-4.5); TOTAL PROTEIN 6.8 g/dL (6.4-8.9)
--- NOTE | 2022-12-26 19:17 | Ultrasound Report ---
PROCEDURE: Abdomen Limited INDICATIONS: RUQ pain TECHNIQUE: Real-time focused scanning was performed of the abdomen, with image documentation. COMPARISONS: CT abdomen pelvis 12/12/2022.. FINDINGS: Exam is technically difficult due to body habitus, acoustic windows, patient motion. Liver: Measures 15.2 cm in length. Heterogeneous. Gallbladder: Gallbladder is nondistended. Stone near the gallbladder neck measuring 1.[address] wall is within normal limits. No pericholecystic fluid. Negative sonographic Arriaga sign. Biliary ducts: Intrahepatic bile ducts are non-dilated. Extrahepatic bile duct caliber measures 6 m m. Normal is 6-7 mm or less in diameter, or 10 mm or less post-cholecystectomy. Pancreas: Obscured by bowel gas. Right kidney: Normal in size and echotexture. Right kidney measures 11.1 cm long. No hydronephrosis or nephrolithiasis. No solid masses. Aorta: Visualized aorta is normal in caliber at less than 3 cm. IVC: Intrahepatic inferior vena cava is patent. Miscellaneous: No free abdominal fluid. IMPRESSION: Exam is technically difficult. Stone at the gallbladder neck measuring 1.6 cm. However, no secondary signs to suggest acute cholecys titis. Reviewed by: Miah Loera MD on 12/26/2022 7:16 PM PDT Approved by: Miah Loera MD on 12/26/2022 7:16 PM PDT Station ID: [id number]
[2022-12-26] MEDS ORDERED: SODIUM CHLORIDE 0.9% 1,000 ML IV STA (19:33)
[2022-12-26] MEDS ORDERED: GI COCKTAIL 120 ML BOTTLE PO STA (20:08)
[2022-12-26] MEDS ORDERED: PANTOPRAZOLE 40 MG VIAL IVP STA (20:08)
[2022-12-26] MEDS ORDERED: MAG HYDROX/AL HYDROX/SIMETH 30 ML UDC PO STA (20:24)
[2022-12-26 21:17] LABS: BILIRUBIN,URINE NEGATIVE (NEGATIVE); CLARITY,URINE HAZY (CLEAR); GLUCOSE, URINE (UA) NEGATIVE (NEGATIVE); KETONES,URINE (UA) 15 mg/dL (NEGATIVE); LEUKOCYTE ESTERASE, URINE SMALL (NEGATIVE); NITRITE,URINE NEGATIVE (NEGATIVE); OCCULT BLOOD,URINE LARGE (NEGATIVE); PROTEIN,URINE TRACE mg/dL (NEGATIVE); UROBILINOGEN,URINE 0.2 (NORMAL) E.U./dL (NORMAL)
[2022-12-26 21:27] LABS: BACTERIA,URINE Moderate /HPF (None Seen); RBC,URINE TNTC /HPF (0-5); SQUAMOUS EPITHELIAL CELL,UR FEW Squamous (<= Few); WBC,URINE >25 /HPF (0-3)
[2022-12-26] MEDS ORDERED: cefTRIAXone 1 GM in SODIUM CHLORIDE 0.9% MINIBAG 100 ML IV STA (21:38)
--- NOTE | 2022-12-26 21:43 | CT Report ---
PROCEDURE: ABDOMEN/PELVIS W INDICATIONS: worsening RUQ pain CONTRAST: 100mL Omni 300 TECHNIQUE: After the administration of intravenous contrast, 5 mm thick sections acquired from the diaphragms to the symphysis. 5 mm thick coronal and sagittal reformats were acquired. For radiation dose reducti on, the following was used: automated exposure control, adjustment of mA and/or kV according to lam ent size. COMPARISON: 12/12/2022 FINDINGS: Image quality: Decreased quality due to arm position.. Lung bases and heart: Gravitational changes posteriorly at both lung bases. Mild left base atelectasi s. No effusion. The heart is mildly enlarged and there is moderate coronary artery calcification. Liver: No visible mass. Gallbladder and biliary tree: Distended gallbladder but with grossly normal wall thickness by CT. A d ependent 1.8 cm stone is near the neck. No pericholecystic inflammation. Biliary tree is nondilated. Spleen: No splenomegaly. Pancreas: No pancreatic ductal dilation. Adrenals: No adrenal nodule. Kidneys and ureters: Mild bilateral hydronephrosis. No significant mid or distal hydroureter or urete ral calcifications. 2.0 cm Left renal cyst. Several tiny scattered cortical cysts bilaterally. Bowel and peritoneum: The proximal stomach is decompressed. The gastric antrum, first, and proximal s econd portions of the duodenum demonstrate circumferential mural thickening and edema, and prominent mucosal hyperemia. Mild periduodenal inflammation. No free air. Distal small bowel loops and colon ar e within normal limits. Prior partial right hemicolectomy. Prominent distal colonic diverticulosis. Lymph nodes: No central or retroperitoneal adenopathy. Vessels: Normal caliber vasculature. Retroaortic left renal vein. Moderate mixed calcified and noncal cified aortic atherosclerosis. PELVIS Reproductive organs: Brachytherapy seeds in the prostate gland. Bladder: No abnormal wall thickening, accounting for underdistension. Pelvic lymph nodes: No pelvic adenopathy by size criteria. Bones: No suspicious bone lesions. Partially ankylosis of sacroiliac joints and degenerative facet ar thropathy of the lumbar spine. Other: Small fat-containing bilateral inguinal hernias. IMPRESSION: 1. Findings suggestive of distal gastritis and duodenitis/peptic ulcer disease. No evidence of perfor ation. 2. Cholelithiasis without CT evidence of acute cholecystitis. 3. Mild bilateral hydronephrosis. No visible urinary calcifications. Given bilaterality and symmetry, this is likely physiologic. 4. Colonic diverticulosis without acute diverticulitis. Reviewed by: Yu Adames MD on 12/26/2022 9:42 PM PDT Approved by: Yu Adames MD on 12/26/2022 9:42 PM PDT Station ID: [id number]
[2022-12-26] MEDS ORDERED: oxyCODONE/ACET 5/325 Prepack 4 PO STA (21:56)
[2022-12-26] MEDS ORDERED: ONDANSETRON ODT 4 MG Prepack 2 TL PRN (21:56)
[2022-12-26] MEDS ORDERED: cefTRIAXone 1 GM VIAL ONE (22:02)
[2022-12-26 22:51] VITALS: BP 150/76; O2SAT 97
[2022-12-27] MEDS ORDERED: iohexoL-300 100 ML VIAL IVP ONE (03:50)
== END 2022-12-26 22:34 | disposition home or self-care (01) ==
LOC: ED 17:56
DX: N39.0 Urinary tract infection, site not specified (principal); K27.9 Peptic ulcer, site unspecified, unspecified as acute or chronic, without hemorrhage or perforation; I10 Essential (primary) hypertension; Z79.899 Other long term (current) drug therapy
CPT/HCPCS: 36415; 74177; 76705; 80053; 81001; 83690; 85025; 87086; 96365; 96375; 99284; A9270; Q9967; 81003; 83013